=== PATIENT | male | born 1975 | race Caucasian/White ===

== ENCOUNTER 2017-10-31 07:33 | Emergency (ER) | payer OTHER ==
[~2017-10-31] VITALS: Ht 188 cm; Wt 97.5 kg
[2017-10-31] MEDS ORDERED: PENICILLIN G BENZATHINE LA 1.2 MU TBX IM STA (08:03)
== END 2017-10-31 08:27 | disposition home or self-care (01) ==
LOC: FSED 07:33
DX: R50.9 Fever, unspecified (principal); R07.0 Pain in throat; J02.0 Streptococcal pharyngitis; M79.1 Myalgia
CPT/HCPCS: 83518; 87400; 99283; J0561